=== PATIENT | male | born 1970 | race Caucasian/White ===

== ENCOUNTER 2019-06-04 14:37 | Emergency (ER) | payer OTHER ==
[~2019-06-04] VITALS: Ht 170.2 cm; Wt 81.8 kg
[~2019-06-04 14:37] MED LIST: NO HOME MEDICATIONS
[2019-06-04 14:50] VITALS: BP 140/95; TEMP 97.7
[2019-06-04 18:42] LABS: COLLECTION METHOD CLEAN CATCH
[2019-06-04] MEDS ORDERED: NORCO 325 MG-51 TAB PO (18:46)
[2019-06-04] MEDS ORDERED: FLEXERIL 1010 MG/TAB PO (18:46)
[2019-06-04 18:52] LABS: MUCOUS Present /lpf; PH 5 (5-8); SQUAMOUS EPITHELIAL None Seen /hpf; URINE APPEARANCE Clear; URINE BACTERIA None Seen /hpf; URINE BILIRUBIN Negative (NEGATIVE); URINE BLOOD Negative (NEGATIVE); URINE COLOR Yellow; URINE GLUCOSE Negative (NEGATIVE); URINE KETONE Negative (NEGATIVE); URINE LEUKOCYTE ESTERASE Negative (NEGATIVE); URINE NITRATE Negative (NEGATIVE); URINE PROTEIN(semi-quant) Negative (NEGATIVE); URINE RBC None Seen /hpf; URINE UROBILINOGEN Negative (NEGATIVE)
[2019-06-04 19:02] VITALS: PULSE 86
== END 2019-06-04 19:03 | disposition home or self-care (01) ==
LOC: COL.ER 14:37
PROVIDERS: Emergency Medicine
DX: M54.5 Low back pain (principal); Z79.1 Long term (current) use of non-steroidal anti-inflammatories (NSAID)
CPT/HCPCS: J1885